=== PATIENT | female | born 1950 ===

== ENCOUNTER 2021-04-11 12:45 | Inpatient (IN) | payer OTHER ==
[~2021-04-11] VITALS: Ht 157.5 cm; Wt 86.2 kg
[2021-04-11] MEDS ORDERED: TOPROL XL50 M1 PO (14:33)
[2021-04-11] MEDS ORDERED: SYNTHROID75 MCG PO (14:33)
[2021-04-11] MEDS ORDERED: PROTONIX20 MG PO (14:33)
[2021-04-11] MEDS ORDERED: CRESTOR40 MG PO (14:34)
[2021-04-11] MEDS ORDERED: XARELTO20 MG PO (14:34)
[2021-04-11] MEDS ORDERED: FLECAINIDE ACET50 MG PO (14:35)
[2021-04-11] MEDS ORDERED: ATIVAN1 M1 PO (14:35)
[2021-04-12] MEDS ORDERED: PANTOPRAZOLE SO40 MG (13:03)
== END 2021-04-14 15:20 | disposition home or self-care (01) | DRG 743 ==
LOC: O/R 04-12 09:28 → SURG 04-12 09:28 → OB/GYN 04-12 09:28 → SURH 04-12 12:45 → OB/GYN 04-12 19:35 → SURG 04-13 07:39
PROVIDERS: ADMIT Specialist; ATTEND Specialist
PROC: 0UT20ZZ Resection of Bilateral Ovaries, Open Approach (ICD-10-PCS; 2021-04-12)
PROC: 0UT70ZZ Resection of Bilateral Fallopian Tubes, Open Approach (ICD-10-PCS; 2021-04-12)
PROC: 07BC0ZZ Excision of Pelvis Lymphatic, Open Approach (ICD-10-PCS; 2021-04-12)
PROC: 0DBU0ZZ Excision of Omentum, Open Approach (ICD-10-PCS; 2021-04-12)
PROC: 0UT90ZZ Resection of Uterus, Open Approach (ICD-10-PCS; principal; 2021-04-12 14:00)
DX: D25.1 Intramural leiomyoma of uterus (principal); N80.0 Endometriosis of uterus; N72 Inflammatory disease of cervix uteri; N83.292 Other ovarian cyst, left side; N83.291 Other ovarian cyst, right side; I11.9 Hypertensive heart disease without heart failure; I35.1 Nonrheumatic aortic (valve) insufficiency; I48.0 Paroxysmal atrial fibrillation; Z79.01 Long term (current) use of anticoagulants

== ENCOUNTER 2021-04-20 10:02 | Emergency (ER) | payer OTHER ==
[~2021-04-20] VITALS: Ht 157.5 cm; Wt 83.9 kg
[~2021-04-20 10:02] MED LIST: ATIVAN1 M1 PO; CRESTOR40 MG PO; FLECAINIDE ACET50 MG PO; PANTOPRAZOLE SO40 MG; PROTONIX20 MG PO; SYNTHROID75 MCG PO; TOPROL XL50 M1 PO; XARELTO20 MG PO
== END 2021-04-20 19:08 | disposition home or self-care (01) ==
LOC: ER 10:02
DX: R06.02 Shortness of breath (principal); Z03.818 Encounter for observation for suspected exposure to other biological agents ruled out

== ENCOUNTER 2024-02-26 07:33 | Outpatient (CLI) | payer OTHER | END 2024-02-26 07:40 | disposition home or self-care (01) | LOC: RAD 07:33 | PROVIDERS: ATTEND Internal Medicine Gastroenterology | DX: R10.13 Epigastric pain (principal); Z86.010 Personal history of colon polyps; R11.0 Nausea; R11.2 Nausea with vomiting, unspecified; R14.0 Abdominal distension (gaseous); R19.7 Diarrhea, unspecified; R19.4 Change in bowel habit ==